=== PATIENT | female | born 1985 | race Two or more races ===

== ENCOUNTER 2024-01-10 20:52 | Emergency (ER) | payer MEDICAID, OTHER ==
[~2024-01-10] VITALS: Ht 162.6 cm; Wt 118.0 kg
[2024-01-11] MEDS ORDERED: HYDR-4798 PO
[2024-01-11] MEDS ORDERED: IBUP-1455 PO
[2024-01-11 00:10] VITALS: BP 113/62; PULSE 79; RESP 16; TEMP 98.2; O2SAT 96
[2024-01-11] MEDS: HYDROcodone-ACET 10/325MG TAB PO ONE (00:14)
== END 2024-01-11 01:17 | disposition home or self-care (01) ==
LOC: EDBD 20:52 → ER 20:52
DX: S82.62XA Displaced fracture of lateral malleolus of left fibula, initial encounter for closed fracture (principal); S93.401A Sprain of unspecified ligament of right ankle, initial encounter; W18.31XA Fall on same level due to stepping on an object, initial encounter; Z91.81 History of falling; Y93.89 Activity, other specified; Y92.89 Other specified places as the place of occurrence of the external cause; Y99.8 Other external cause status
CPT/HCPCS: 29515; 73610